=== PATIENT | female | born 1955 | race Caucasian/White ===

== ENCOUNTER 2022-04-15 12:41 | Emergency (ER) | payer MEDICARE ==
[2022-04-15] MEDS ORDERED: ONDANSETRON 4 MG/2 ML VIAL ONE (13:21)
[2022-04-15] MEDS ORDERED: MORPHINE 4 MG/ML SYR ONE ×2 (13:21→14:47)
[2022-04-15 13:22] LABS: Absolute Lymphocytes (CBC) 1.4 K/uL (0.7-4.9); Hematocrit 40.1 % (36.0-45.0); Lymphocytes % 14.8 % (15.3-44.8); MCV 90.3 fL (80-100); MPV 7.2 fL (7.6-11.3); RBC Red Blood Cell Count 4.43 M/uL (3.86-4.86)
[2022-04-15 13:27] LABS: Protime INR 1.06
[2022-04-15] MEDS ORDERED: NA CHLORIDE 0.9% 500 ML ONE (13:27)
[2022-04-15 13:38] LABS: Magnesium 2.1 mg/dL (1.6-2.4); Potassium 3.3 mmol/L (3.5-5.1)
[2022-04-15 13:39] LABS: Troponin High Sensitivity 4.6 pg/mL (<58.9)
--- NOTE | 2022-04-15 13:40 | RAD REPORT ---
EXAM DESCRIPTION: CT - Ct Stroke Brain Wo Cont - 04/15/2022 1:33 pm CLINICAL HISTORY: STROKE ALERT COMPARISON: Head angio dated 04/15/2022 TECHNIQUE: Noncontrast head CT images ad were obtained without IV contrast. Multiplanar reformats we re generated and reviewed. All CT scans are performed using dose optimization technique as appropriate and may include automated exposure control or mA/KV adjustment according to patient size. FINDINGS: No intracranial hemorrhage, mass, or edema. Midline structures are unremarkable. Normal ventricular caliber for age. Radiodense focus at or near the left carotid bifurcation, may relate to intracranial atherosclerotic calcifications. Colbert-white matter differentiation is preserved, without evidence of acute infarct. No abnormal extra- axial fluid collections. Mastoid air cells and visualized portions of the paranasal sinuses are clear. No acute bony findings. IMPRESSION: No evidence of an acute intracranial process.
--- NOTE | 2022-04-15 13:46 | RAD REPORT ---
EXAM DESCRIPTION: CT - Head angio - 04/15/2022 1:33 pm CLINICAL HISTORY: HEADACHE Stroke for a cold COMPARISON: Neck Angio dated 04/15/2022 TECHNIQUE: Axial CT angiography images of the head was performed with multiplanar and maximum intens ity projection reconstructions. Images performed following intravenous administration of 100mL Isovue 370. All CT scans are performed using dose optimization technique as appropriate and may include automated exposure control or mA/KV adjustment according to patient size. FINDINGS: No evidence of large vessel occlusion. No evidence of aneurysm or dissection flap is detec rose. No flow-limiting stenosis or vascular malformation identified. Focal atherosclerotic calcificati on along the left MCA origin, without flow-limiting stenosis. Antegrade flow is seen in the vertebral arteries. The vertebral arteries are codominant. The visualized dural venous sinuses are grossly patent. IMPRESSION: No evidence of large vessel occlusion or flow-limiting stenosis.
[2022-04-15] MEDS ORDERED: TETRACAINE HCL 0.5% 4ML OPTH ONE (13:50)
--- NOTE | 2022-04-15 13:58 | RAD REPORT ---
EXAM DESCRIPTION: CT - Neck Angio - 04/15/2022 1:33 pm CLINICAL HISTORY: HEADACHE Stroke protocol COMPARISON: Ct Stroke Brain Wo Cont dated 04/15/2022 TECHNIQUE: Axial CT angiography images of the head was performed with multiplanar and maximum intens ity projection reconstructions. Images performed following intravenous administration of 100mL Isovue 370. All CT scans are performed using dose optimization technique as appropriate and may include automated exposure control or mA/KV adjustment according to patient size. FINDINGS: A left aortic arch is identified with normal three vessel configuration of the great vesse ls. No significant flow abnormality is seen of the common carotid bilaterally. Dense predominantly calcified atherosclerotic plaque at the carotid bifurcation and proximal right IC A, with narrowest luminal diameter measuring 2 millimeter compared to 3.9 millimeter more distal righ t ICA diameter, amounting to 49% stenosis by NASCET criteria. Predominantly noncalcified left proxima l ICA mild atherosclerotic plaque, without significant stenosis by NASCET criteria. Normal flow is seen within both vertebral arteries. IMPRESSION: No evidence of major arterial occlusion. Dense atherosclerotic plaque along the right proximal ICA, with degree of stenosis amounting to 49% b y NASCET criteria. Mild predominantly noncalcified plaque along the proximal left ICA without signifi cant stenosis. No flow abnormality of either vertebral artery. The findings were communicated to Liang Yusuf on 04/15/2022 at 13:53 hours.
[2022-04-15] MEDS ORDERED: KETOROLAC 30 MG/ML INJ ONE (14:47)
[2022-04-15] MEDS ORDERED: METOCLOPRAMIDE 10 MG/2mL INJ ONE (14:47)
[2022-04-15] MEDS ORDERED: dexAMETHasone 10 MG/ML VIAL ONE (14:47)
[2022-04-15] MEDS ORDERED: NA CHLORIDE 0.9% 250 ML ONE (14:48)
--- NOTE | 2022-04-15 15:59 | ER ---
Nurse's Notes [facility] Name: Hemalatha Leone Age: 67 yrs Sex: Female : 1955 Arrival Date: 04/15/2022 Time: 12:44 Bed 18 Private MD: Diagnosis: Headache Presentation: 04/15 12:50 Chief complaint: Sudden onset left sided headache, dizziness, and left eye pain that hb started 4 hours ago. Coronavirus screen: At this time, the client does not indicate any symptoms associated with coronavirus-19. Ebola Screen: No symptoms or risks identified at this time. Initial Sepsis Screen: Does the patient meet any 2 criteria? No. Patient's initial sepsis screen is negative. Does the patient have a suspected source of infection? No. Patient's initial sepsis screen is negative. Risk Assessment: Do you want to hurt yourself or someone else? Patient reports no desire to harm self or others. Onset of symptoms was April 15, 2022. 12:50 Method Of Arrival: Ambulatory hb 12:50 Acuity: CASSI 3 hb Historical: - Allergies: 12:53 No Known Allergies; hb - Immunization history:: Adult Immunizations up to date. - Social history:: Smoking status: Patient denies any tobacco usage or history of. - Family history:: not pertinent. - Hospitalizations: : No recent hospitalization is reported. Screenin:04 [facility] ED Fall Risk Assessment (Adult) History of falling in the last 3 months, ko1 including since admission No falls in past 3 months (0 pts) Confusion or Disorientation No (0 pts) Intoxicated or Sedated No (0 pts) Impaired Gait No (0 pts) Mobility Assist Device Used No (0 pt) Altered Elimination No (0 pt) Score/Fall Risk Level 0 - 2 = Low Risk Oriented to surroundings, Maintained a safe environment, Educated pt \T\ family on fall prevention, incl call for assistance when getting out of bed, Assessed \T\ reinforced patient's understanding of fall precautions, Provided non-skid footwear, Hourly rounding (assess needs \T\ fall precautionary measures) done, Used ambulatory aids as needed (educated on \T\ assisted with), Used gait belt as appropriate. Abuse screen: Denies threats or abuse. Denies injuries from another. Nutritional screening: No deficits noted. Tuberculosis screening: No symptoms or risk factors identified. Assessment: 13:04 General: Appears distressed, uncomfortable, Behavior is cooperative, appropriate for ko1 age, anxious, restless. Pain: Complains of pain in forehead and left church. Neuro: No deficits noted. Cardiovascular: No deficits noted. Respiratory: No deficits noted. GI: No deficits noted. : No deficits noted. EENT: No deficits noted. Derm: No deficits noted. Musculoskeletal: No deficits noted. Vital Signs: 12:50 BP 130 / 77; Pulse 77; Resp 16; Temp 98.3; Pulse Ox 100% ; Weight 81.65 kg; Height 5 hb ft. 8 in. (172.72 cm); Pain 5/10; 13:00 BP 151 / 85; Pulse 67; Resp 18; Pulse Ox 100% ; ko1 13:07 BP 165 / 76; Pulse 71; Temp 96.8; Pulse Ox 99% ; rs5 14:00 BP 150 / 97; Pulse 71; Resp 18; Pulse Ox 99% ; ko1 15:00 BP 154 / 88; Pulse 66; Resp 16; Pulse Ox 96% ; ko1 12:50 Body Mass Index 27.37 (81.65 kg, 172.72 cm) hb [place] Coma Score: 15:56 Eye Response: spontaneous(4). Verbal Response: oriented(5). Motor Response: obeys rn commands(6). Total: 15. ED Course: 12:44 Patient arrived in ED. rg4 12:51 Verito Iqbal FNP-C is [facility]. kb 12:51 Liang Yusuf MD is Attending Physician. kb 12:53 Triage completed. hb 12:53 Lory Shen, RN is Primary Nurse. ko1 12:53 Arm band placed on. hb 13:00 Inserted saline lock: 20 gauge in right antecubital area, using aseptic technique. ko1 Blood collected. 13:03 Liang Yusuf MD is Attending Physician. rn 13:04 Patient has correct armband on for positive identification. Bed in low position. Call ko1 light in reach. Side rails up X 1. Client placed on continuous cardiac and pulse oximetry monitoring. NIBP monitoring applied. financial systems manager on. 13:04 No provider procedures requiring assistance completed. ko1 13:15 Basic Metabolic Panel Sent. ko1 13:15 CBC with Diff Sent. ko1 13:15 Magnesium Sent. ko1 13:15 Protime (+inr) Sent. ko1 13:15 Ptt, Activated Sent. ko1 13:15 Troponin High Sensitivity Sent. ko1 14:08 CT In Process Unspecified. EDMS 14:08 CT In Process Unspecified. EDMS 14:08 CT In Process Unspecified. EDMS 16:08 IV discontinued, intact, bleeding controlled, No redness/swelling at site. Pressure ko1 dressing applied. Administered Medications: 13:19 Drug: Zofran (Ondansetron) 4 mg Route: IVP; Site: right antecubital; ko1 13:23 Drug: morphine 4 mg Route: IVP; Infused Over: 4 mins; Site: right antecubital; ko1 13:44 Drug: NS 0.9% 500 ml Route: IV; Rate: bolus; Site: right antecubital; ko1 13:55 Drug: Tetracaine Drops 0.5 % 1 drops Route: Ophthalmic; Site: left eye; ko1 14:54 Drug: Decadron - Dexamethasone 10 mg Route: IVP; Site: right antecubital; ko1 14:54 Drug: Ketorolac 15 mg Route: IVP; Site: right antecubital; ko1 14:55 Drug: Reglan (metoCLOPramide) 10 mg Route: IVP; Site: right antecubital; ko1 14:56 Drug: morphine 4 mg Route: IVP; Infused Over: 4 mins; Site: right antecubital; ko1 Medication: 13:04 VIS not applicable for this client. ko1 Outcome: 15:59 Discharge ordered by . rn 16:08 Discharged to home ambulatory, with family. ko1 16:08 Condition: improved 16:08 Discharge instructions given to patient, family, Instructed on discharge instructions, follow up and referral plans. medication usage, Demonstrated understanding of instructions, follow-up care, medications, Prescriptions given X 2. 16:21 Patient left the ED. ko1 Signatures: Dispatcher [employer] EDMS Verito Iqbal, SKIDWAY MAN-C SKIDWAY MAN-CkLiang Vlaencia MD MD rn Baxter, Heather, RN RN hb Garcia, Rubi rg4 Lory Shen RN RN ko1 Demond Slater rs5
--- NOTE | 2022-04-15 16:00 | EDPHYS ---
Physician Documentation [facility] Name: Hemalatha Leone Age: 67 yrs Sex: Female : 1955 Arrival Date: 04/15/2022 Time: 12:44 Bed 18 Private MD: ED Physician Liang Yusuf HPI: 04/15 13:37 This 67 yrs old Female presents to ER via Ambulatory with complaints of Migraine. rn 13:37 The patient complains of pain to the forehead and left eye. The patient describes the rn headache as aching. Onset: The symptoms/episode began/occurred 2 day(s) ago. Associated signs and symptoms: Pertinent negatives: fever, neck stiffness, rash, vision loss, weakness, vertigo. Severity of symptoms: At its worst the pain was moderate, in the emergency department the pain is unchanged. The symptoms are alleviated by nothing. the symptoms are aggravated by nothing. The patient has not experienced similar symptoms in the past. The patient has not recently seen a physician. Pt reports left sided headache that began 2 days ago, got better, then worse around 8-9 AM today, behind left eye, no vision loss, no weakness/numbness/speech problem. Reports "only headache". No trauma or head injury. . Historical: - Allergies: 12:53 No Known Allergies; hb - Immunization history:: Adult Immunizations up to date. - Social history:: Smoking status: Patient denies any tobacco usage or history of. - Family history:: not pertinent. - Hospitalizations: : No recent hospitalization is reported. ROS: 13:37 Constitutional: Negative for fever, chills, and weight loss, Eyes: Negative for injury, rn pain, redness, and discharge, Neck: Negative for injury, pain, and swelling, Cardiovascular: Negative for chest pain, palpitations, and edema, Respiratory: Negative for shortness of breath, cough, wheezing, and pleuritic chest pain, Abdomen/GI: Negative for abdominal pain, diarrhea, and constipation, + nausea Back: Negative for injury and pain, MS/Extremity: Negative for injury and deformity, Skin: Negative for injury, rash, and discoloration, Neuro: Negative for weakness, numbness, tingling, and seizure. Exam: 13:37 Constitutional: This is a well developed, well nourished patient who is awake, alert, rn and in no acute distress. Head/Face: Normocephalic, atraumatic. Eyes: PERRL. NO nystagmus. Periorbital areas with no swelling, redness, or edema. Neck: Trachea midline, no masses palpated, and no cervical lymphadenopathy. Supple, full range of motion without nuchal rigidity, or vertebral point tenderness. No Meningismus. Cardiovascular: Regular rate and rhythm. No pulse deficits. Respiratory: No increased work of breathing, no retractions or nasal flaring. Abdomen/GI: soft, non-tender Skin: Warm, dry MS/ Extremity: Pulses equal, no cyanosis Neuro: Awake and alert, GCS 15, oriented to person, place, time, and situation. Cranial nerves II-XII grossly intact. Motor strength 5/5 in all extremities. Sensory grossly intact. Cerebellar exam normal. 15:21 ECG was reviewed by the Attending Physician. rn Vital Signs: 12:50 BP 130 / 77; Pulse 77; Resp 16; Temp 98.3; Pulse Ox 100% ; Weight 81.65 kg; Height 5 hb ft. 8 in. (172.72 cm); Pain 5/10; 13:00 BP 151 / 85; Pulse 67; Resp 18; Pulse Ox 100% ; ko1 13:07 BP 165 / 76; Pulse 71; Temp 96.8; Pulse Ox 99% ; rs5 14:00 BP 150 / 97; Pulse 71; Resp 18; Pulse Ox 99% ; ko1 15:00 BP 154 / 88; Pulse 66; Resp 16; Pulse Ox 96% ; ko1 12:50 Body Mass Index 27.37 (81.65 kg, 172.72 cm) hb [place] Coma Score: 15:56 Eye Response: spontaneous(4). Verbal Response: oriented(5). Motor Response: obeys rn commands(6). Total: 15. MDM: 12:51 Patient medically screened. kb 13:40 ED course: Pt with left sided headache, began 2 days ago and worse this AM, pt with rn repetitive speech and blurred vision so code stroke called, but could also be migraine vs ocular migraine vs glaucoma. CTA ordered as well. Even if CVA, outside of TNK window. . 13:58 ED course: Ocular pressure checked after tetracaine, left eye pressure 15, normal. Not rn glaucoma. CT head and angio neg. . 15:56 Differential diagnosis: cluster headache, glaucoma, hypertensive headache, rn intracerebral hemorrhage, migraine, neoplasm, sinusitis, tension headache, trigeminal neuralgia, uremia, vasomotor headache, ocular migraine, migraine. Data reviewed: vital signs, nurses notes, lab test result(s), radiologic studies, CT scan, and as a result, I will discharge patient. Consideration of Admission/Observation Escalation of care including admission/observation considered. Counseling: I had a detailed discussion with the patient and/or guardian regarding: the historical points, exam findings, and any diagnostic results supporting the discharge/admit diagnosis, lab results, radiology results, the need for outpatient follow up, to return to the emergency department if symptoms worsen or persist or if there are any questions or concerns that arise at home. Response to treatment: the patient's symptoms have markedly improved after treatment, and as a result, I will discharge patient. Special discussion: I discussed with the patient/guardian in detail that at this point there is no indication for admission to the hospital. It is understood, however, that if the symptoms persist or worsen the patient needs to return immediately for re-evaluation. Based on the history and exam findings, there is no indication for further emergent testing or inpatient evaluation. I discussed with the patient/guardian the need to see the neurologist for further evaluation of the symptoms. I discussed with the patient/guardian the need to see the opthamologist for further evaluation of the symptoms. ED course: NO acute findings on ct head/CTA head/CTA neck. Normal ocular pressure. Possible migraine vs ocular migraine vs atypical migraine. NO vision loss, no tenderness over temporal region. NO focal neuro findings or complaints. Will dc home as feels better, with prn pain medication/steroids, and instructions to f/u with Ophtho and neurology. . 04/15 13:09 Order name: Basic Metabolic Panel rn 04/15 13:09 Order name: CBC with Diff rn 04/15 13:09 Order name: Magnesium rn 04/15 13:09 Order name: Protime (+inr) rn 04/15 13:09 Order name: Ptt, Activated rn 04/15 13:09 Order name: Troponin High Sensitivity rn 04/15 12:57 Order name: CT Stroke Brain w/o Contrast kb 04/15 13:09 Order name: CT Head Angio rn 04/15 13:22 Order name: CBC with Automated Diff EDMS 04/15 13:27 Order name: Protime (+INR) EDNV 04/15 13:27 Order name: PTT, Activated Partial Thromb EDNV 04/15 13:38 Order name: Basic Metabolic Panel EDNV 04/15 13:38 Order name: Magnesium EDNV 04/15 13:39 Order name: Troponin High Sensitivity EDNV 04/15 13:09 Order name: EKG; Complete Time: 13:10 rn 04/15 13:09 Order name: Cardiac monitoring; Complete Time: 13:15 rn 04/15 13:09 Order name: EKG - Nurse/Tech; Complete Time: 13:48 rn 04/15 13:09 Order name: IV Saline Lock; Complete Time: 13:15 rn 04/15 13:19 Order name: Neck Angio CT rn 04/15 13:41 Order name: CT EDNV 04/15 13:46 Order name: CT EDNV 04/15 13:58 Order name: [facility] 04/15 13:09 Order name: Labs collected and sent; Complete Time: 13:15 rn 04/15 13:09 Order name: NPO; Complete Time: 13:19 rn 04/15 13:09 Order name: O2 Per Protocol; Complete Time: 13:19 rn 04/15 13:09 Order name: O2 Sat Monitoring; Complete Time: 13:19 rn EC:21 Rate is 70 beats/min. Rhythm is regular. QRS [place] is Normal. [place] interval is normal. QRS rn interval is normal. QT interval is prolonged at 481 msec. No Q waves. T waves are Normal. No ST changes noted. Clinical impression: NSR w/ Non-specific ST/T Changes. Interpreted by me. Reviewed by me. Administered Medications: 13:19 Drug: Zofran (Ondansetron) 4 mg Route: IVP; Site: right antecubital; ko1 13:23 Drug: morphine 4 mg Route: IVP; Infused Over: 4 mins; Site: right antecubital; ko1 13:44 Drug: NS 0.9% 500 ml Route: IV; Rate: bolus; Site: right antecubital; ko1 13:55 Drug: Tetracaine Drops 0.5 % 1 drops Route: Ophthalmic; Site: left eye; ko1 14:54 Drug: Decadron - Dexamethasone 10 mg Route: IVP; Site: right antecubital; ko1 14:54 Drug: Ketorolac 15 mg Route: IVP; Site: right antecubital; ko1 14:55 Drug: Reglan (metoCLOPramide) 10 mg Route: IVP; Site: right antecubital; ko1 14:56 Drug: morphine 4 mg Route: IVP; Infused Over: 4 mins; Site: right antecubital; ko1 Disposition Summary: 04/15/22 15:59 Discharge Ordered Location: Home rn Problem: new rn Symptoms: have improved rn Condition: Stable rn Diagnosis - Headache rn Followup: rn - With: Private Physician - When: As needed - Reason: Recheck today's complaints, Re-evaluation by your physician Discharge Instructions: - Discharge Summary Sheet rn - General Headache Without Cause rn - Hypertension, Adult rn - Pain Without a Known Cause rn Forms: - Medication Reconciliation Form rn - Thank You Letter rn - Antibiotic turntable man - Prescription Opioid Use rn Prescriptions: - Tramadol 50 mg Oral Tablet - take 1 tablet by ORAL route every 8 hours as needed; 12 tablet; Refills: 0, rn Product Selection Permitted - Medrol (Alfredo) 4 mg Oral Tablets, Dose Pack - take 1 tablet by ORAL route as directed - follow package instructions; 1 rn packet; Refills: 0, Product Selection Permitted Signatures: Dispatcher [employer] Verito Freitas, DEBBI STARKP-Liang Ribeiro MD MD rn Baxter, Heather RN RN Lory Herrera, RN RN ko1
[2022-04-15 16:28] VITALS: TEMP 96.8
[2022-04-15 16:30] VITALS: BP 154/88; O2SAT 96
--- NOTE | 2022-04-16 18:41 | EKG ---
Test Date: 2022-04-15 Test Time: 13:49:47 Information Resource Consultant: KAE MEASUREMENT RESULTS: Intervals: Rate: 70 IN: 182 QRSD: 88 QT: 446 QTc: 481 [place]: P: 49 IN: 182 QRS: 34 T: 78 INTERPRETIVE STATEMENTS: Normal sinus rhythm Prolonged QT Abnormal ECG No previous ECG available for comparison Electronically Signed On 04-16-22 18:39:[address] Hutson
== END 2022-04-15 16:21 | disposition home or self-care (01) ==
LOC: ER 12:41
DX: R51.9 Headache, unspecified (principal)
CPT/HCPCS: 93005; 85025; 80048; 36415; 83735; 85610; 82565; 85730; 84484; 70496; 70498; 70450; 96375; 96374; 99284; Q9967; J2765; J1100; J7050; J7040; J2405